=== PATIENT | female | born 2000 | race Caucasian/White ===

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

== ENCOUNTER 2021-02-04 12:35 | Emergency (ER) | payer OTHER ==
[2021-02-04 12:50] VITALS: BP 122/76; TEMP 99; BMI 21.9
[2021-02-04] MEDS ORDERED: DEXAMETHASONE SOD PHOSPHATE 10 MG/1 ML VIAL PO ONE (13:40)
[2021-02-04] MEDS ORDERED: IBUPROFEN 600 MG TABLET (FP) PO ONE ×2 (13:40→13:48)
[2021-02-04] MEDS ORDERED: DEXAMETHASONE SOD PHOSPHATE 10 MG/1 ML VIAL ONE (13:48)
[2021-02-04 15:18] VITALS: PULSE 98
== END 2021-02-04 15:05 | disposition home or self-care (01) ==
LOC: FER 12:35
DX: J02.9 Acute pharyngitis, unspecified (principal)
CPT/HCPCS: 81025; 87880; 99283-25; C9803; J1100; U0003; U0005

== ENCOUNTER 2021-02-06 07:17 | Emergency (ER) | payer OTHER ==
[2021-02-06 07:31] VITALS: BP 124/70; PULSE 104; TEMP 100.6; BMI 21.9
[2021-02-06] MEDS ORDERED: IBUPROFEN 600 MG TABLET (FP) PO ONE ×2 (08:00→08:07)
[2021-02-06] MEDS ORDERED: LIDOCAINE VISCOUS 2% ORAL/TOP 15 ML UNIT-DOSE CUP MM ONE (08:00)
[2021-02-06] MEDS ORDERED: MAG HYDROX/AL HYDROX/SIMETH -MYLANTA- ORAL SUSPENSION PO ONE (08:00)
[2021-02-06] MEDS ORDERED: diphenhydrAMINE HCL 12.5 MG/5 ML UNIT-DOSE CUPS PO ONE (08:00)
[2021-02-06] MEDS ORDERED: MAG HYDROX/AL HYDROX/SIMETH 30 ML UNIT-DOSE CUP ONE (08:09)
[2021-02-06] MEDS ORDERED: LIDOCAINE VISCOUS 2% ORAL/TOP 15 ML UNIT-DOSE CUP ONE (08:09)
== END 2021-02-06 08:31 | disposition home or self-care (01) ==
LOC: FER 07:17
DX: B08.4 Enteroviral vesicular stomatitis with exanthem (principal)
CPT/HCPCS: 99283-25